=== PATIENT | female | born 1965 | race Caucasian/White ===

== ENCOUNTER → 2017-07-15 | Outpatient (CLI) | payer BC, OTHER ==
[~2017-07-15] VITALS: Ht 170.2 cm; Wt 95.3 kg
[~2017-07-15] MED LIST: CITA10TA7 PO; ESTR1TAB24 PO
== END ==
LOC: PREOP 05:50
PROVIDERS: ATTEND Surgery
DX: Z01.818 Encounter for other preprocedural examination (principal); Z12.11 Encounter for screening for malignant neoplasm of colon

== ENCOUNTER 2017-07-22 08:49 | Day surgery (SDC) | payer BC ==
[~2017-07-22] VITALS: Ht 170.2 cm; Wt 95.3 kg
[2017-07-22] MEDS ORDERED: NS IV 500 ML 500 ML IV PRN (08:58)
[2017-07-22 09:07] VITALS: BP 120/83
--- NOTE | 2017-07-22 10:48 | History & Physicial ---
History of Present Illness History of Present Illness Reason for visit/HPI to undergo screening colonoscopy Date of Admission 07/22/17 Date Seen by Provider: Jul 22, 2017 Time Seen by Provider: 10:46 I consulted on this patient on 07/22/17 10:46 Attending Physician Jill Pearl MD Admitting Physician Katia Theodore DO Consult Allergies and Home Medications Allergies Coded Allergies: No Known Drug Allergies (Unverified , 07/15/17) Home Medications Citalopram Hydrobromide 10 Mg Tablet, 10 MG PO DAILY, (Reported) Estradiol 1 Mg Tablet, 1 MG PO DAILY, (Reported) Past [id number] Hx Patient Social History Marrital Status: Employed/Student: employed Alcohol Use: Rarely Uses Recreational Drug Use: No Smoking Status: Never a Smoker Recent Foreign Travel: No Contact w/other who traveled: No Recent Hopitalizations: No Recent Infectious Disease Expo: No Seasonal Allergies Seasonal Allergies: No Surgeries Yes Hysterectomy Respiratory No Cardiovascular Yes Heart Murmur Neurological No Reproductive System : Yes Hx Reproductive Disorders: No Sexually Transmitted Disease: No HIV/AIDS: No COATER HAND History: Hysterectomy Gastrointestinal No Musculoskeletal No Endocrine History of Endocrine Disorders: No HEENT History of HEENT Disorders: No Loss of Vision: Bilateral Hearing Impairment: Denies Cancer No Psychosocial History of Psychiatric Problem: Yes Behavioral Health Disorders: Depression Integumentary History of Skin or Integumenta: No Blood Transfusions Adverse Reaction to a Blood Tr: No (N/A) Family Medical History Significant Family History: No Pertinent Family Hx Constitutional: no symptoms reported EENTM: no symptoms reported Respiratory: no symptoms reported Cardiovascular: no symptoms reported Gastrointestinal: no symptoms reported Musculoskeletal: no symptoms reported Skin: no symptoms reported Psychiatric/Neurological: No Symptoms Reported, See HPI, Anxiety, Depressed Physical Exam Vital Signs Vital Sign - Last 12Hours 07/22/17 09:07 Temp 98.1 Pulse 106 Resp 18 B/P (MAP) 120/83 (95) Pulse Ox 95 O2 Delivery Room Air Capillary Refill : General Appearance: No Apparent Distress HEENT: Normal ENT Inspection Neck: Normal Inspection Respiratory: Lungs Clear Cardiovascular: Regular Rate, Rhythm Gastrointestinal: Non Tender, Soft Rectal: Deferred Back: Normal Inspection Extremity: Normal Inspection Neurologic/Psychiatric: Alert, Oriented x3 Skin: Warm/Dry Assessment/Plan Assessment and Plan Lady to undergo screening colonoscopy. Discussed in detail Problems: JILL PEARL MD Jul 22, 2017 10:48 am
--- NOTE | 2017-07-22 10:49 | Conscious Sedation/ASA ---
Conscious Sedation Pre-Proced Time Reviewed: 10:49 ASA Class: 2 Airway Mallampati Classification: (chickaloon appropriate class) I. II. III, IV Lungs Heart ASA score ASA 1: a normal healthy patient ASA 2: a patient with a mild systemic disease (mid diabetes, controlled hypertension, obesity ASA 3: a patient with a severe systemic disease that limits activity (angina , COPD, prior Myocardial infarction) ASA 4: a patient with an incapacitating disease that is a constant threat to life (CHF, renal failure) ASA 5: a moribund patient not expected to survive 24 hrs. (ruptured aneurysm) ASA 6: a declared brain patient whose organs are being harvested. For emergent operations, add the letter E after the classification Grade 1 Sedation Plan: Discussed options with patient/fam Note The patient is an appropriate candidate to undergo the planned procedure, sedation, and anesthesia. The patient immediately re-assessed prior to indication. JILL RUSSO MD Jul 22, 2017 10:49 am
[2017-07-22] MEDS ORDERED: fentaNYL INJECTION 100 MCG/2 ML AMP ONE ×2 (11:28→11:45)
[2017-07-22] MEDS ORDERED: MIDAZOLAM 2 MG/2 ML (VERSED) VIAL ONE ×5 (11:28→11:42)
[2017-07-22] MEDS: MIDAZOLAM 2 MG/2 ML (VERSED) VIAL IVP PRN ×5 (11:32→11:48)
[2017-07-22] MEDS: fentaNYL INJECTION 100 MCG/2 ML AMP IVP PRN ×4 (11:33→11:49)
[2017-07-22 12:20] VITALS: BP 117/73
--- NOTE | 2017-07-22 12:20 | Endo Procedure Record ---
Endo Procedure Report Date of Procedure Last Colonoscopy: Yes (1994) Jul 22, 2017 Surgeon (s) JILL RUSSO MD Post Procedure/Op Diagnosis Normal colonoscopy Procedure Performed Colonoscopy to cecum Description of Procedure Anesthesia Type: Conscious Sedation Specimen(s) collected/removed None Description of the Procedure indication for the procedure: This lady came in for screening colonoscopy. She reported a family history of colon cancer in her paternal uncle. Informed consent was obtained after reviewing the procedure in detail. Description of the procedure: She was placed in left lateral decubitus position and her vital signs were monitored. Conscious sedation was achieved using Versed and fentanyl. Digital rectal examination was unremarkable. The colonoscope was then introduced into the rectum and advanced all the way to the cecum. The quantity of bowel preparation was excellent. The scope was then withdrawn slowly and the mucosa examined in a systematic fashion. There was no abnormality She tolerated the procedure well and was taken back to the nursing area in a stable condition. Impression: Normal screening colonoscopy. Positive family history. Recommend repeating in 5 years. Copies To: MARY ASHTON XAVIER M MD Jul 22, 2017 12:20 pm
--- NOTE | 2017-07-22 12:23 | Discharge Inst-Simple/Standard ---
Discharge Inst-Standard Discharge Medications New, Converted or Re-Newed RX: Other Patient Instructions/Follow Up Plan of Care/Instructions/FU: Repeat colonoscopy in 5 years Activity as Tolerated: Yes Discharge Diet: No Restrictions JILL RUSSO MD Jul 22, 2017 12:23 pm
[2017-07-22 12:56] VITALS: BP 121/74
[2017-07-22 12:57] VITALS: BP 121/74
== END 2017-07-22 13:00 | disposition home or self-care (01) ==
LOC: ENDO 08:49
PROVIDERS: ATTEND Surgery
DX: Z12.11 Encounter for screening for malignant neoplasm of colon (principal); Z80.0 Family history of malignant neoplasm of digestive organs

== ENCOUNTER 2018-05-14 05:39 | Outpatient (CLI) | payer BC ==
[~2018-05-14] VITALS: Ht 170.2 cm; Wt 95.3 kg
== END 2018-05-14 14:20 | disposition home or self-care (01) ==
LOC: PREOP 05:39
PROVIDERS: ATTEND Surgery
DX: Z01.818 Encounter for other preprocedural examination (principal)

== ENCOUNTER 2018-05-21 07:09 | Day surgery (SDC) | payer BC ==
[~2018-05-21] VITALS: Ht 170.2 cm; Wt 90.9 kg
[2018-05-21] MEDS ORDERED: LACTATED RINGERS 1,000 ML IV PRN (07:22)
--- NOTE | 2018-05-21 07:24 | Progress Note-Pre Operative ---
Pre-Operative Progress Note H&P Reviewed The H&P was reviewed, patient examined and no changes noted. Date Seen by Provider: May 05, 2018 Time Seen by Provider: 16:00 Date H&P Reviewed: May 21, 2018 Time H&P Reviewed: 07:24 Pre-Operative Diagnosis: Hemorrhoids JILL RUSSO MD May 21, 2018 07:24
[2018-05-21] MEDS ORDERED: ceFAZolin 2 GM IV Premixed 50 ML IV ONE (07:30)
[2018-05-21] MEDS ORDERED: proPOfol 200 MG/20 ML (DIPRIVAN) VIAL IV ONE (07:37)
[2018-05-21] MEDS ORDERED: fentaNYL INJECTION 100 MCG/2 ML AMP ONE (07:37)
[2018-05-21] MEDS ORDERED: ONDANSETRON 4 MG/2 ML (SDV) Z0FRAN ONE (07:37)
[2018-05-21] MEDS ORDERED: LIDOCAINE PF 2% 5 ML (XYLOCAINE) VIAL ONE (07:37)
[2018-05-21] MEDS ORDERED: MIDAZOLAM 2 MG/2 ML (VERSED) VIAL ONE (07:37)
[2018-05-21] MEDS ORDERED: DEXAMETHASONE 10 MG/ML (DECADRON) 1 ML VIAL ONE (07:38)
[2018-05-21] MEDS ORDERED: SEVOFLURANE (ULTANE) 15 ML INHAL SOLN ONE ×2 (07:39→09:08)
[2018-05-21 07:41] VITALS: BP 135/79
[2018-05-21] MEDS ORDERED: CATHETER FLUSH 10 ML SYR IV PRN (07:45)
[2018-05-21] MEDS ORDERED: BUP/EPI 0.5% 1:200,000 (SENSORCAINE) 30 ML VIAL ONE (08:37)
[2018-05-21] MEDS ORDERED: NEOSPORIN + PAIN RELIEF CREAM 15 GM ONE (09:06)
--- NOTE | 2018-05-21 09:17 | Operative Report ---
Operative Report Date of Procedure/Surgery May 21, 2018 Surgeon (s) JILL RUSSO MD Speech Language Pathologist Travel (s): N/A Post-Operative Diagnosis external hemorrhoids 2 Posterior, chronic anal fissure Procedure Performed anal dilatation Hemorrhoidectomy 2 Description of Procedure Anesthesia Type: General Estimated blood loss (mL): minimal Specimen(s) collected/removed external hemorrhoids Description of the Procedure Indication for the procedure: This lady presented with symptomatic external hemorrhoids. Previous colonoscopy was negative for any significant internal component, nor any polyps. Due to her symptoms, it was felt reasonable to offer conventional hemorrhoidectomy. Informed consent was obtained after reviewing the operative details and the potential for postoperative pain and recurrence. Description of the procedure: She was placed in lithotomy position after adequate general anesthesia was achieved. Ancef and Flagyl were administered intravenously as prophylaxis against wound infection. Examination under anesthetic confirmed a chronic posterior anal fissure, associated with a sentinel pile. In addition, a small external hemorrhoid was found at 3 o'clock position as well. Due to the presence of the fissure, gentle digital anal dilatation was performed without disrupting the internal sphincter. Hemorrhoidectomy: 0.5 percent Marcaine with epinephrine was infiltrated submucosally around both hemorrhoids at 7 o'clock and 3 o'clock positions. The hemorrhoidal tissue and the associated redundant skin were excised using Harmonic scalpel. The defect was closed using 4-0 Vicryl, in a subcuticular fashion. Local anesthetic ointment and a nonadherent dressing were then applied. She tolerated it well, was extubated in the operative room and taken to the recovery room in a stable condition. Findings of the Procedure see op report Allergies and Home Medications Allergies Coded Allergies: No Known Drug Allergies (Unverified , 05/21/18) Home Medications Citalopram Hydrobromide 10 Mg Tablet, 10 MG PO DAILY, (Reported) Estradiol 1 Mg Tablet, 1 MG PO DAILY, (Reported) Patient Home Medication List Home Medication List Reviewed: Yes JILL RUSSO MD May 21, 2018 09:17
[2018-05-21] MEDS ORDERED: ACHD5005 PO (09:18)
--- NOTE | 2018-05-21 09:19 | Discharge Inst-Simple/Standard ---
Discharge Inst-Standard Discharge Medications New, Converted or Re-Newed RX: RX on Chart Patient Instructions/Follow Up Plan of Care/Instructions/FU: October shower. Maxi pad for dressing. Follow-up in 3 weeks. Stool softeners as needed Activity as Tolerated: Yes Discharge Diet: No Restrictions JILL RUSSO MD May 21, 2018 09:19
--- NOTE | 2018-05-21 09:24 | Anesthesia-General Post-Op ---
General Patient Condition Mental Status/LOC: Same as Preop Cardiovascular: Satisfactory Nausea/Vomiting: Absent Respiratory: Satisfactory Pain: Controlled Complications: Absent Post Op Complications Complications None Follow Up Care/Instructions Patient Instructions None needed. Anesthesia/Patient Condition Patient Condition Patient is doing well, no complaints, stable vital signs, no apparent adverse anesthesia problems. No complications reported per nursing. ROMANA KAUR CRNA May 21, 2018 09:24
[2018-05-21] MEDS ORDERED: morphine INJ 10 MG/ML 1ML (SYR OR VIAL) IVP ONE (09:30)
[2018-05-21] MEDS ORDERED: ONDANSETRON 4 MG/2 ML (SDV) Z0FRAN IVP PRN (09:30)
[2018-05-21] MEDS ORDERED: MEPERIDINE (DEMEROL) INJ 50 MG/ML IVP ONE (09:30)
[2018-05-21 10:15] VITALS: BP 122/81
[2018-05-21 10:45] VITALS: BP 128/69
[2018-05-21 11:24] VITALS: BP 121/67
== END 2018-05-21 11:32 | disposition home or self-care (01) ==
LOC: SDC 07:09
PROVIDERS: ATTEND Surgery
DX: K60.1 Chronic anal fissure (principal); K64.4 Residual hemorrhoidal skin tags; Z11.2 Encounter for screening for other bacterial diseases; Z79.899 Other long term (current) drug therapy; Z80.0 Family history of malignant neoplasm of digestive organs; F32.9 Major depressive disorder, single episode, unspecified; E66.9 Obesity, unspecified; Z68.32 Body mass index [BMI] 32.0-32.9, adult
CPT/HCPCS: 87081; 88304